=== PATIENT | female | born 1970 ===

== ENCOUNTER 2017-04-25 04:31 | Emergency (ER) | payer SELFPAY ==
[2017-04-25 05:07] VITALS: BP 201/128
[2017-04-25] MEDS ORDERED: ASPIRIN PO ONE (05:07)
[2017-04-25] MEDS ORDERED: CATAPRES PO ONE (05:08)
[2017-04-25] MEDS ORDERED: CATAPRES ONE (05:16)
[2017-04-25] MEDS ORDERED: ASPIRIN ONE (05:17)
[2017-04-25 05:45] LABS: Hematocrit 44.3 % (30.3-42.9); Hemoglobin 14.8 gm/dl (10.1-14.3); Mean Corpuscular HGB Conc 33 % (30-34); Mean Corpuscular Hemoglobin 32 pg (28-32); Mean Corpuscular Volume 95 fl (79-97); Platelet Count 242 K/mm3 (140-440); Red Blood Count 4.65 M/mm3 (3.65-5.03); Red Cell Distribution Width 13.1 % (13.2-15.2)
[2017-04-25 06:05] LABS: BUN/Creatinine Ratio 16; Blood Urea Nitrogen 13 mg/dL (7-17); Calcium 9.2 mg/dL (8.4-10.2); Hemolysis Index 12
[2017-04-25 06:32] LABS: Platelet Estimate Consistent w Auto; Total Cells Counted 100
== END 2017-04-25 15:00 | disposition left against medical advice (07) ==
LOC: ED 04:31
DX: Z53.21 Procedure and treatment not carried out due to patient leaving prior to being seen by health care provider (principal)
CPT/HCPCS: 36415; 80048; 84484; 85007; 85025; 93005; 93010

== ENCOUNTER 2017-09-16 07:57 | Inpatient (IN) | payer OTHER ==
[2017-09-16] MEDS ORDERED: NACL 0.9% 1000 ML 1,000 ML IV ONE ×2 (08:17→12:44)
[2017-09-16 09:07] LABS: Hematocrit 43.6 % (30.3-42.9); Hemoglobin 14.2 gm/dl (10.1-14.3); Mean Corpuscular HGB Conc 33 % (30-34); Mean Corpuscular Hemoglobin 31 pg (28-32); Mean Corpuscular Volume 94 fl (79-97); Platelet Count 259 K/mm3 (140-440); Red Blood Count 4.63 M/mm3 (3.65-5.03); Red Cell Distribution Width 13.2 % (13.2-15.2)
[2017-09-16 09:09] LABS: Creatine Kinase MB 1.4 ng/mL (0.0-4.0)
[2017-09-16 09:12] LABS: Alanine Aminotransferase 55 units/L (7-56); BUN/Creatinine Ratio 16; Blood Urea Nitrogen 13 mg/dL (7-17); Calcium 9.8 mg/dL (8.4-10.2); Hemolysis Index 15; Lipase 6 units/L (13-60)
[2017-09-16 09:12] LABS: Lipase 7 units/L (13-60)
[2017-09-16] MEDS ORDERED: CATAPRES PO ONE ×2 (09:29→10:12)
--- NOTE | 2017-09-16 09:30 | Emergency Department Report ---
ED Abdominal Pain HPI - General Chief Complaint: GI Bleed Stated Complaint: ABDOMINAL PAIN Time Seen by Provider: 09/16/17 09:29 Source: patient Mode of arrival: Wheelchair Limitations: No Limitations - History of Present Illness Initial Comments: She is a 47-year-old female that presents emergency room with abdominal pain and chest pain that started at 2 AM this morning. patient states she has thrown up about 4-6 times of bright red blood. Patient states the pain is a 10 out of 10 in her abdomen at a 4 out of 10 in her chest. Patient states both pains are better with rest and worse with exertion . Abdominal pain is also worse with palpitation and vomiting. Patient denies fever chills. Patient denies shortness of breath. Patient denies history of GI bleed. MD Complaint: abdominal pain -: Sudden Location: epigastric Radiation: none Migration to: no migration Severity: severe Severity scale (0 -10): 10 Quality: stabbing Consistency: constant Improves With: rest Worsens With: vomiting, movement Associated Symptoms: nausea, vomiting, hematemesis. denies: diarrhea, fever, chills, constipation, dysuria, melena, hematuria, anorexia, syncope - Related Data LMP (females 10-50): other (status post hysterectomy) Home Medications Medication Instructions Recorded Confirmed Last Taken No Known Home Medications [No 04/25/17 04/25/17 Unknown Reported Home Medications] Allergies Allergy/AdvReac Type Severity Reaction Status Date / Time No Known Allergies Allergy Verified 09/16/17 09:30 ED Review of Systems ROS: Stated complaint: ABDOMINAL PAIN Other details as noted in HPI Comment: All other systems reviewed and negative Constitutional: denies: chills, fever Eyes: denies: eye pain, eye discharge, vision change ENT: denies: ear pain, throat pain Respiratory: denies: cough, shortness of breath, wheezing Cardiovascular: chest pain. denies: palpitations Endocrine: no symptoms reported Gastrointestinal: as per HPI, abdominal pain, nausea, vomiting, hematemesis. denies: diarrhea, constipation, melena Genitourinary: denies: urgency, dysuria, discharge Musculoskeletal: denies: back pain, joint swelling, arthralgia Skin: denies: rash, lesions Neurological: denies: headache, weakness, paresthesias Psychiatric: denies: anxiety, depression Hematological/Lymphatic: denies: easy bleeding, easy bruising ED Past Medical Hx - Past Medical History Previous Medical History?: Yes Hx Hypertension: Yes Hx Heart Attack/AMI: ([facility]) Additional medical history: THYROID - Surgical History Past Surgical History?: Yes Additional Surgical History: Hysterectomy, - Family History Family history: hypertension - Social History Smoking Status: Current Some Day Smoker Substance Use Type: None - Medications Home Medications: Home Medications Medication Instructions Recorded Confirmed Last Taken Type No Known Home Medications [No 04/25/17 04/25/17 Unknown History Reported Home Medications] ED Physical Exam - General Limitations: No Limitations General appearance: alert, in distress (patient Tachypneic) - Head Head exam: Present: atraumatic, normocephalic - Eye Eye exam: Present: normal appearance - ENT ENT exam: Present: mucous membranes dry - Neck Neck exam: Present: normal inspection - Respiratory Respiratory exam: Present: normal lung sounds bilaterally, respiratory distress (patient tachypneic) - Cardiovascular Cardiovascular Exam: Present: regular rate, normal rhythm. Absent: systolic murmur, diastolic murmur, rubs, gallop - GI/Abdominal GI/Abdominal exam: Present: soft, tenderness (left upper quadrant and epigastric tenderness to palpation), normal bowel sounds - Extremities Exam Extremities exam: Present: normal inspection - Back Exam Back exam: Present: normal inspection - Neurological Exam Neurological exam: Present: alert, oriented X3 - Psychiatric Psychiatric exam: Present: normal affect, normal mood - Skin Skin exam: Present: warm, dry, intact, normal color. Absent: rash ED Course Vital Signs 09/16/17 09/16/17 09/16/17 08:13 09:37 09:54 Temperature 99.4 F 99.6 F Pulse Rate 122 H 115 H 115 H Respiratory 24 36 H Rate Blood Pressure 219/115 216/119 Blood Pressure 216/119 [Left] O2 Sat by Pulse 90 100 Oximetry 09/16/17 09/16/17 09/16/17 10:15 11:08 12:51 Temperature Pulse Rate 104 H 109 H Respiratory Rate Blood Pressure 210/128 202/125 189/100 Blood Pressure [Left] O2 Sat by Pulse Oximetry 09/16/17 09/16/17 14:15 14:30 Temperature Pulse Rate 109 H 108 H Respiratory 19 26 H Rate Blood Pressure Blood Pressure 186/87 173/90 [Left] O2 Sat by Pulse 97 95 Oximetry - Reevaluation(s) Reevaluation #1: Patient extremely hypertensive and we'll give patient another hypertensive medication. She states her pain has improved 09/16/17 11:18 Reevaluation #2: Dr. Vidal consult for admission. Hospitalist to admit patient. Discussed plan of care with patient and family. Patient and family agree to admission. 09/16/17 12:55 ED Medical Decision Making - Lab Data Result diagrams: 09/16/17 15:22 09/16/17 08:28 - EKG Data -: EKG Interpreted by Me EKG shows normal: sinus rhythm, axis, intervals, QRS complexes, ST-T waves Rate: tachycardia - EKG Data Interpretation: [facility] - Radiology Data Radiology results: report reviewed CT scan negative for PE however positive for possible bilateral pneumonia. Abdomen negative for acute findings - Medical Decision Making Patient is a 47-year-old female presents to emergency with chest pain and abdominal pain and hematemesis. Patient found to have bilateral pneumonia along with elevated white count and elevated d-dimer. Patient will be admitted to the hospitalist service for further evaluation and treatment. - Differential Diagnosis cp. abd pain. pna. pe. gastroenteritis. Critical Care Time: Yes Critical care attestation.: If time is entered above; I have spent that time in minutes in the direct care of this critically ill patient, excluding procedure time. Critical Care Time: 40 minutes spent for critical care time ED Disposition Clinical Impression: Hypertensive emergency, Elevated d-dimer, Tachycardia, Tachypnea Chest pain Qualifiers: Chest pain type: unspecified Qualified Code(s): R07.9 - Chest pain, unspecified Abdominal pain Qualifiers: Abdominal location: upper abdomen, unspecified Qualified Code(s): R10.10 - Upper abdominal pain, unspecified Hematemesis Qualifiers: Nausea presence: with nausea Qualified Code(s): K92.0 - Hematemesis Nausea & vomiting Qualifiers: Vomiting type: hematemesis Qualified Code(s): K92.0 - Hematemesis Pneumonia Qualifiers: Pneumonia type: due to unspecified organism Laterality: bilateral Lung location : unspecified part of lung Qualified Code(s): J18.9 - Pneumonia, unspecified organism Elevated white blood cell count Qualifiers: Leukocytosis type: unspecified Qualified Code(s): D72.829 - Elevated white blood cell count, unspecified Disposition: DC-09 OP ADMIT IP TO THIS HOSP Is pt being admited?: Yes Does the pt Need Aspirin: No Condition: Critical Time of Disposition: 12:44
[2017-09-16] MEDS ORDERED: LOPRESSOR IV ONE (09:37)
[2017-09-16 10:06] LABS: Bilirubin,Urine NEG (Negative); Blood,Urine MOD (Negative); Color,Urine Yellow (Yellow); Mucus,Urine FEW /HPF; Urobilinogen,Urine < 2.0 mg/dL (<2.0)
[2017-09-16] MEDS ORDERED: CATAPRES ONE (10:07)
[2017-09-16] MEDS ORDERED: MORPHINE ONE (10:08)
[2017-09-16 10:10] LABS: INR 0.96 (0.87-1.13)
[2017-09-16 10:11] LABS: Partial Thromboplastin Time 28.7 Sec. (24.2-36.6)
[2017-09-16] MEDS ORDERED: MORPHINE IV ONE (10:12)
[2017-09-16 10:50] LABS: Band Neutrophils # (Manual) 0.8 K/mm3; Basophils % (Manual) 0 % (0.0-1.8); Eosinophils % (Manual) 0 % (0.0-4.3); Total Cells Counted 100
[2017-09-16 10:51] LABS: Platelet Estimate Consistent w Auto; RBC Morphology Normal
[2017-09-16] MEDS ORDERED: APRESOLINE ONE (11:05)
[2017-09-16] MEDS ORDERED: APRESOLINE IV ONE ×2 (11:08→12:08)
--- NOTE | 2017-09-16 11:54 | Cat Scan Report ---
CTA CHEST: HISTORY: Chest pain, elevated d-dimer. COMPARISON: none. TECHNIQUE: Helical CT in 1.25mm intervals following IV contrast. Pulmonary embolus protocol. Sagittal and coronal reformatted images. Rotational MIP images. FINDINGS: Contrast bolus is satisfactory. No pulmonary embolus is identified. Thyroid gland: Normal. Tracheobronchial tree: Normal. Esophagus: Normal. Heart: Mild to moderate cardiomegaly. Pericardium: Normal. Mediastinum: Normal. Lung Guevara: Patchy infiltrate is identified in the left lower lobe, lingula and middle lobe. There is ammonia or congestion. I favor pneumonia. Pleural Spaces: Normal. Musculoskeletal: Intact. Mild thoracic spondylosis. IMPRESSION: No evidence for pulmonary embolus. Cardiomegaly and bilateral infiltrates. Correlate for pneumonia.
--- NOTE | 2017-09-16 11:56 | Cat Scan Report ---
CT ABDOMEN PELVIS WITH AND WITHOUT CONTRAST: HISTORY: abdominal pain. COMPARISON: none. TECHNIQUE: Helical CT in 1.25mm intervals before and after IV contrast. Sagittal and coronal reconstructions. FINDINGS: Lung bases: Cardiomegaly and infiltrates in the lower lung zones are noted. Liver: Normal. Biliary system: Normal. Pancreas: Normal. Spleen: Normal. Kidneys/ureters/bladder: Normal. Adrenal glands: Normal. Aorta: Normal. Intestines: Unremarkable given no oral contrast was administered. Appendix: Normal. Pelvic viscera: Hysterectomy. Small bilateral ovarian cysts are identified measuring up to 1.5 cm. Ascites: None. Adenopathy: None. Musculoskeletal: Intact. IMPRESSION: Cardiomegaly and bilateral lower lung infiltrates. No acute inflammatory process is identified in the abdomen. Small bilateral ovarian cysts. Hysterectomy.
[2017-09-16] MEDS ORDERED: ZOSYN/NS 3.375GM/50ML 3.375 GM/50 ML BAG IV SCH (13:00)
--- NOTE | 2017-09-16 14:30 | History and Physical Report ---
History of Present Illness Chief complaint: My stomach hurts, I feel sick History of present illness: 47 YO Female with Obesity, HTN, Medication Noncompliance, Hypothyroidism, presents to ED for evaluation. Pt states that she has experienced Abdominal Pain , and chest discomfort for the past 1 day with persistent symptoms over the same time frame. Pt states that her abdominal pain is 10/10, epigastric, constant, improves with rest, worsened with movement, associated with nausea, vomiting, and vomiting up blood. Pt states that she has experienced 6 episodes of vomiting blood in the past 24 hours. Pt seen and evaluated in ED and found to have GI Bleed, Bilateral Pneumonia, Sepsis, and Accelerated hypertension. Pt admitted to medical floor. GI team consulted, Pt hgb stable,without hematemeis in ED. Past History Past Medical History: hypertension, hypothyroidism Past Surgical History: , hysterectomy Social history: , lives with family, smoking Family history: hypertension Medications and Allergies Allergies Allergy/AdvReac Type Severity Reaction Status Date / Time No Known Allergies Allergy Verified 09/16/17 09:30 Home Medications Medication Instructions Recorded Confirmed Last Taken Type No Known Home Medications [No 04/25/17 04/25/17 Unknown History Reported Home Medications] Active Meds: Active Medications Piperacillin Sod/Tazobactam Sod (Zosyn/Ns 3.375gm/50ml) 3.375 gm in 50 mls @ 100 mls/hr IV Q6H JENNYFER Last Admin: 09/16/17 14:22 Dose: 100 mls/hr Review of Systems Constitutional: no weight loss, no weight gain, no fever, no chills Ears, nose, mouth and throat: no ear pain, no ear discharge, no tinnitis, no decreased hearing, no nose pain Breasts: no change in shape, no swelling, no mass Cardiovascular: no chest pain, no orthopnea, no palpitations, no rapid/ irregular heart beat, no edema Respiratory: no cough, no cough with sputum, no excessive sputum, no hemoptysis Gastrointestinal: abdominal pain, nausea, vomiting, hematemesis, no BRBPR, no loss of appetite Genitourinary Female: no pelvic pain, no flank pain, no menorrhagia, no dysuria , no urinary frequency, no urgency Rectal: no pain, no incontinence, no bleeding Musculoskeletal: no neck stiffness, no neck pain, no shooting arm pain, no arm numbness/tingling, no low back pain, no shooting leg pain Integumentary: no rash, no pruritis, no redness, no sores, no wounds Neurological: no head injury, no transient paralysis, no paralysis, no weakness , no parathesias, no numbness, no tingling Psychiatric: no anxiety, no memory loss, no change in sleep habits, no sleep disturbances, no insomnia, no hypersomnia, no change in appetite Endocrine: no cold intolerance, no heat intolerance, no polyphagia, no excessive thirst, no polydipsia, no polyuria, no nocturia Hematologic/Lymphatic: no easy bruising, no easy bleeding, no lymphadenopathy, no lymphedema Allergic/Immunologic: no urticaria, no allergic rhinitis, no wheezing, no persistent infections, no anaphylaxis Exam - Constitutional Vitals: Temp Pulse Resp BP Pulse Ox 99.6 F 109 H 36 H 189/100 100 09/16/17 09:37 09/16/17 12:51 09/16/17 09:37 09/16/17 12:51 09/16/17 09:37 General appearance: Present: mild distress, obese - EENT Eyes: Present: PERRL ENT: hearing intact, clear oral mucosa - Neck Neck: Present: supple, normal ROM - Respiratory Respiratory effort: normal Respiratory: bilateral: diminished, rhonchi - Cardiovascular Heart Sounds: Present: S1 & S2. Absent: rub, click - Extremities Extremities: pulses symmetrical, No edema Peripheral Pulses: abnormal (capillary refill greater than 3.6 seconds) - Integumentary Integumentary: Present: clear, warm, dry - Musculoskeletal Musculoskeletal: generalized weakness - Psychiatric Psychiatric: appropriate mood/affect, intact judgment & insight - Neurologic Neurologic: CNII-XII intact, moves all extremities Results - Labs CBC & Chem 7: 09/16/17 15:22 09/16/17 08:28 Labs: Abnormal lab results 09/16/17 09/16/17 09/16/17 Range/Units 08:28 08:28 08:28 WBC 20.2 H (4.5-11.0) K/mm3 Hct 43.6 H (30.3-42.9) % Seg Neuts % (Manual) 91.0 H (40.0-70.0) % Lymphocytes % (Manual) 2.0 L (13.4-35.0) % Seg Neutrophils # Man 18.4 H (1.8-7.7) K/mm3 Lymphocytes # (Manual) 0.4 L (1.2-5.4) K/mm3 D-Dimer 1074.75 H (0-234) ng/mlDDU Sodium 134 L (137-145) mmol/L Chloride 96.9 L (98-107) mmol/L Glucose 120 H (65-100) mg/dL Total Bilirubin 1.40 H (0.1-1.2) mg/dL Total Protein 8.3 H (6.3-8.2) g/dL Lipase 6 L (13-60) units/L 09/16/ Range/Units 08:33 WBC (4.5-11.0) K/mm3 Hct (30.3-42.9) % Seg Neuts % (Manual) (40.0-70.0) % Lymphocytes % (Manual) (13.4-35.0) % Seg Neutrophils # Man (1.8-7.7) K/mm3 Lymphocytes # (Manual) (1.2-5.4) K/mm3 D-Dimer (0-234) ng/mlDDU Sodium (137-145) mmol/L Chloride (98-107) mmol/L Glucose (65-100) mg/dL Total Bilirubin (0.1-1.2) mg/dL Total Protein (6.3-8.2) g/dL Lipase 7 L (13-60) units/L Assessment and Plan - Patient Problems (1) Sepsis Current Visit: Yes Status: Acute Qualifiers: Sepsis type: sepsis due to unspecified organism Qualified Code(s): A41.9 - Sepsis, unspecified organism Plan to address problem: IV antibiotics, IVF resuscitation, monitor uop q shift, daily weight, Strict I/O , monitor fluid balance, serial lactic acid level, Chest X ray, urinalysis, blood cultures (2) GI bleed Current Visit: Yes Status: Acute Qualifiers: GI bleed type/associated pathology: gastrointestinal hemorrhage with hematemesis Qualified Code(s): K92.0 - Hematemesis Plan to address problem: No active bleeding, HGB stable, GI consulted in ED, PPI therapy (3) Nicotine dependence Current Visit: Yes Status: Acute Qualifiers: Substance use status: in withdrawal Plan to address problem: smoking cessation counseling, supportive care. (4) Accelerated hypertension Current Visit: Yes Status: Acute Plan to address problem: Monitor bp q shift, resume prehospital therapy (5) Pneumonia Current Visit: Yes Status: Acute Qualifiers: Pneumonia type: due to unspecified organism Laterality: bilateral Lung location: unspecified part of lung Qualified Code(s): J18.9 - Pneumonia, unspecified organism Plan to address problem: IV antibiotics, Chest X ray, CBC, CMP, blood cultures, supplemental oxygen, nebulizer therapy (6) DVT prophylaxis Current Visit: Yes Status: Acute Plan to address problem: SCD to BLE while in bed
[2017-09-16] MEDS ORDERED: LOPRESSOR PO ONE (14:31)
[2017-09-16 15:45] LABS: Hematocrit 39.4 % (30.3-42.9); Hemoglobin 13.4 gm/dl (10.1-14.3); Mean Corpuscular HGB Conc 34 % (30-34); Mean Corpuscular Hemoglobin 31 pg (28-32); Mean Corpuscular Volume 92 fl (79-97); Platelet Count 248 K/mm3 (140-440); Red Blood Count 4.28 M/mm3 (3.65-5.03)
[2017-09-16] MEDS ORDERED: NACL 0.9% 1000 ML IV ONE (16:06)
[2017-09-16] MEDS ORDERED: SODIUM CHLORIDE FLUSH SYRINGE 10 ML IV PRN (16:06)
[2017-09-16 16:15] LABS: Free T4 (Free Thyroxine) 2.03 ng/dL (0.76-1.46)
[2017-09-16 16:17] LABS: Amphetamine Screen,Urine PRESUMPTIVE NEGATIVE; Benzodiazepines Screen,Urine PRESUMPTIVE NEGATIVE; Cannabinoid Screen,Urine PRESUMPTIVE NEGATIVE; Cocaine Screen,Urine PRESUMPTIVE NEGATIVE; Methadone Screen,Urine PRESUMPTIVE NEGATIVE; Opiate Screen,Urine PRESUMPTIVE NEGATIVE
[2017-09-16 16:40] LABS: Band Neutrophils # (Manual) 3.3 K/mm3; Basophils % (Manual) 0 % (0.0-1.8); Eosinophils % (Manual) 0 % (0.0-4.3); Monocytes % (Manual) 5.5 % (0.0-7.3); Total Cells Counted 200
[2017-09-16 16:41] LABS: Ovalocytes Few
[2017-09-16] MEDS ORDERED: VANCOMYCIN 1,750 MG in NACL 0.9% 500 ML 500 ML IV ONE (17:00)
[2017-09-16] MEDS: PROTONIX IV SCH (21:34)
[2017-09-16] MEDS: ZOFRAN IV PRN (21:34)
[2017-09-16] MEDS: SODIUM CHLORIDE FLUSH SYRINGE 10 ML IV SCH (21:34)
[2017-09-16] MEDS: PEPCID IV SCH (21:34)
[2017-09-16] MEDS: TYLENOL PO PRN (21:45)
[2017-09-16] MEDS: ZOSYN/NS 4.5GM/100ML 4.5 GM/100 ML VIAL IV SCH (23:19)
[2017-09-17] MEDS: ZOSYN/NS 4.5GM/100ML 4.5 GM/100 ML VIAL IV SCH ×3 (05:44→22:59)
[2017-09-17] MEDS: PROTONIX IV SCH ×2 (10:30→22:25)
[2017-09-17] MEDS: PEPCID IV SCH ×2 (10:30→22:35)
[2017-09-17] MEDS: ZOFRAN IV PRN ×2 (10:30→22:27)
[2017-09-17 10:55] LABS: Basophils # (Auto) 0.1 K/mm3 (0.0-0.1); Basophils % (Auto) 0.4 % (0.0-1.8); Eosinophils % (Auto) 0.3 % (0.0-4.3); Hematocrit 41.9 % (30.3-42.9); Hemoglobin 14.2 gm/dl (10.1-14.3); Lymphocytes # (Auto) 2.1 K/mm3 (1.2-5.4); Lymphocytes % (Auto) 12.6 % (13.4-35.0); Mean Corpuscular HGB Conc 34 % (30-34); Mean Corpuscular Hemoglobin 32 pg (28-32); Mean Corpuscular Volume 93 fl (79-97); Monocytes # (Auto) 1.6 K/mm3 (0.0-0.8); Monocytes % (Auto) 9.5 % (0.0-7.3); Platelet Count 236 K/mm3 (140-440); Red Cell Distribution Width 13.6 % (13.2-15.2)
[2017-09-17] MEDS ORDERED: PNEUMOVAX 23 IM ONE (12:00)
--- NOTE | 2017-09-17 12:45 | Gastroenterology Consultation ---
History of Present Illness - Reason for Consult Consult date: 09/17/17 hematemesis Requesting physician: KYARA JESUS - History of Present Illness The patient is a 47 year old female for whom consultation was requested for hematemesis. She felt well until 3 day ago when she developed nausea, vomiting and diarrhea. She then began vomiting BRB yesterday. Stools were watery and brown. Today she feels much better and is hungry. No prior history of PUD or bleeding. She is a smoker. Denies significant ETOH use. H&H was normal in ED. Past History Past Medical History: hypertension, hypothyroidism Past Surgical History: , hysterectomy Social history: , lives with family, smoking Family history: hypertension Medications and Allergies Allergies Allergy/AdvReac Type Severity Reaction Status Date / Time No Known Allergies Allergy Verified 09/16/17 09:30 Home Medications Medication Instructions Recorded Confirmed Last Taken Type No Known Home Medications [No 04/25/17 04/25/17 Unknown History Reported Home Medications] Active Meds: Active Medications Acetaminophen (Tylenol) 650 mg PO Q4H PRN PRN Reason: Pain MILD(1-3)/Fever >100.5/ROA Last Admin: 09/16/17 21:45 Dose: 650 mg Famotidine (Pepcid) 20 mg IV BID [facility] Last Admin: 09/17/17 10:30 Dose: 20 mg Hydralazine HCl (Apresoline) 10 mg IV Q4H PRN PRN Reason: Hypertension Piperacillin Sod/Tazobactam Sod (Zosyn/Ns 4.5gm/100ml) 4.5 gm in 100 mls @ 200 mls/hr IV Q8HR [facility]; Protocol Last Admin: 09/17/17 05:44 Dose: 200 mls/hr Nifedipine (Procardia Xl) 90 mg PO QDAY [facility] Ondansetron HCl (Zofran) 4 mg IV Q8H PRN PRN Reason: Nausea And Vomiting Last Admin: 09/17/17 10:30 Dose: 4 mg Pantoprazole Sodium (Protonix) 40 mg IV BID [facility] Last Admin: 09/17/17 10:30 Dose: 40 mg Sodium Chloride (Sodium Chloride Flush Syringe 10 Ml) 10 ml IV BID [facility] Last Admin: 09/16/17 21:34 Dose: 10 ml Sodium Chloride (Sodium Chloride Flush Syringe 10 Ml) 10 ml IV PRN PRN PRN Reason: LINE FLUSH Valsartan (Diovan) 160 mg PO DAILY [facility]ENNYFER Review of Systems - Review of Systems Constitutional: no weight loss Eyes: no change in vision Ears, Nose, Throat: no decreased hearing, no epistaxis Gastrointestinal: abdominal pain, nausea, vomiting, hematemesis Rectal: no pain, no bleeding Female Genitourinary: deferred Musculoskeletal: no gait dysfunction, no joint pain Integumentary: no deferred, no rash, no pruritis Neurological: no head injury, no paralysis Psychiatric: no anxiety, no memory loss Endocrine: no cold intolerance Hematologic/Lymphatic: no easy bruising, no easy bleeding Allergic/Immunologic: no wheezing Exam - Constitutional Vital Signs: Temp Pulse Resp BP Pulse Ox 99.2 F 101 H 20 181/100 92 09/17/17 08:04 09/17/17 08:04 09/17/17 08:04 09/17/17 08:04 09/17/17 08:04 General appearance: no acute distress, well-nourished - EENT Eyes: PERRL ENT: hearing intact, clear oral mucosa, dentition normal - Neck Neck: supple, normal ROM, no masses or JVD - Respiratory Respiratory effort: normal Respiratory: bilateral: CTA - Breasts Breasts: deferred - Cardiovascular Rhythm: regular Heart Sounds: Present: S1 & S2. Absent: gallop, rub Extremities: pulses intact, No edema, normal color, Full ROM - Gastrointestinal General gastrointestinal: Present: soft, non-tender, non-distended, normal bowel sounds. Absent: hepatomegaly, splenomegaly, mass Rectal Exam: deferred - Integumentary Integumentary: Present: clear, warm, dry - Neurologic Neurological: alert and oriented x3 - Labs CBC & Chem 7: 09/17/17 10:22 09/16/17 08:28 Lab Results: Laboratory Results - last 24 hr 09/16/17 09/16/17 09/16/17 15:22 15:22 16:02 WBC 25.7 H RBC 4.28 Hgb 13.4 Hct 39.4 MCV 92 MCH 31 MCHC 34 RDW 13.0 L Plt Count 248 Lymph % (Auto) Wells % (Auto) Eos % (Auto) Baso % (Auto) Lymph # Wells # Eos # Baso # Add Manual Diff Complete Total Counted 200 Seg Neutrophils % Seg Neuts % (Manual) 74.5 H Band Neutrophils % 13.0 Lymphocytes % (Manual) 7.0 L Reactive Lymphs % (Man) 0 Monocytes % (Manual) 5.5 Eosinophils % (Manual) 0 Basophils % (Manual) 0 Metamyelocytes % 0 Myelocytes % 0 Promyelocytes % 0 Blast Cells % 0 Nucleated RBC % Not Reportable Seg Neutrophils # Seg Neutrophils # Man 19.1 H Band Neutrophils # 3.3 Lymphocytes # (Manual) 1.8 Abs React Lymphs (Man) 0.0 Monocytes # (Manual) 1.4 H Eosinophils # (Manual) 0.0 Basophils # (Manual) 0.0 Metamyelocytes # 0.0 Myelocytes # 0.0 Promyelocytes # 0.0 Blast Cells # 0.0 WBC Morphology Not Reportable Hypersegmented Neuts Not Reportable Hyposegmented Neuts Not Reportable Hypogranular Neuts Not Reportable Smudge Cells Not Reportable Toxic Granulation Not Reportable Toxic Vacuolation Not Reportable Dohle Bodies Not Reportable Pelger-Huet Anomaly Not Reportable Arlen Rods Not Reportable Platelet Estimate Appears normal Clumped Platelets Not Reportable Plt Clumps, EDTA Not Reportable Large Platelets Not Reportable Giant Platelets Not Reportable Platelet Satelliting Not Reportable Plt Morphology Comment Not Reportable RBC Morphology Not Reportable Dimorphic RBCs Not Reportable Polychromasia Not Reportable Hypochromasia Not Reportable Poikilocytosis Not Reportable Anisocytosis Not Reportable Microcytosis Not Reportable Macrocytosis Not Reportable Spherocytes Not Reportable Pappenheimer Bodies Not Reportable Sickle Cells Not Reportable Target Cells Not Reportable Tear Drop Cells Not Reportable Ovalocytes Few Helmet Cells Not Reportable Santacruz-Tornillo Bodies Not Reportable Lennon Rings Not Reportable Denhoff Cells Not Reportable Bite Cells Not Reportable Crenated Cell Not Reportable Elliptocytes Not Reportable Acanthocytes (Spur) Not Reportable Rouleaux Not Reportable Hemoglobin C Crystals Not Reportable Schistocytes Not Reportable Malaria parasites Not Reportable Gaudencio Bodies Not Reportable Hem Pathologist Commnt No Lactic Acid NT-Pro-B Natriuret Pep TSH 0.009 L Free T4 2.03 H Urine Opiates Screen Presumptive negative Urine Methadone Screen Presumptive negative Ur Barbiturates Screen Presumptive negative Ur Phencyclidine Scrn Presumptive negative Ur Amphetamines Screen Presumptive negative U Benzodiazepines Scrn Presumptive negative Urine Cocaine Screen Presumptive negative U Marijuana (THC) Screen Presumptive negative Drugs of Abuse Note Disclamer 09/16/17 09/16/17 09/16/17 19:44 19:49 22:00 WBC RBC Hgb Hct MCV MCH MCHC RDW Plt Count Lymph % (Auto) Wells % (Auto) Eos % (Auto) Baso % (Auto) Lymph # Wells # Eos # Baso # Add Manual Diff Total Counted Seg Neutrophils % Seg Neuts % (Manual) Band Neutrophils % Lymphocytes % (Manual) Reactive Lymphs % (Man) Monocytes % (Manual) Eosinophils % (Manual) Basophils % (Manual) Metamyelocytes % Myelocytes % Promyelocytes % Blast Cells % Nucleated RBC % Seg Neutrophils # Seg Neutrophils # Man Band Neutrophils # Lymphocytes # (Manual) Abs React Lymphs (Man) Monocytes # (Manual) Eosinophils # (Manual) Basophils # (Manual) Metamyelocytes # Myelocytes # Promyelocytes # Blast Cells # WBC Morphology Hypersegmented Neuts Hyposegmented Neuts Hypogranular Neuts Smudge Cells Toxic Granulation Toxic Vacuolation Dohle Bodies Pelger-Huet Anomaly Arlen Rods Platelet Estimate Clumped Platelets Plt Clumps, EDTA Large Platelets Giant Platelets Platelet Satelliting Plt Morphology Comment RBC Morphology Dimorphic RBCs Polychromasia Hypochromasia Poikilocytosis Anisocytosis Microcytosis Macrocytosis Spherocytes Pappenheimer Bodies Sickle Cells Target Cells Tear Drop Cells Ovalocytes Helmet Cells Santacruz-Torn[place] Bodies Lennon Rings Denhoff Cells Bite Cells Crenated Cell Elliptocytes Acanthocytes (Spur) Rouleaux Hemoglobin C Crystals Schistocytes Malaria parasites Gaudencio Bodies Hem Pathologist Commnt Lactic Acid 1.10 1.20 NT-Pro-B Natriuret Pep 44216 H TSH Free T4 Urine Opiates Screen Urine Methadone Screen Ur Barbiturates Screen Ur Phencyclidine Scrn Ur Amphetamines Screen U Benzodiazepines Scrn Urine Cocaine Screen U Marijuana (THC) Screen Drugs of Abuse Note 09/17/17 10:22 WBC 16.9 H RBC 4.50 Hgb 14.2 Hct 41.9 MCV 93 MCH 32 MCHC 34 RDW 13.6 Plt Count 236 Lymph % (Auto) 12.6 L Wells % (Auto) 9.5 H Eos % (Auto) 0.3 Baso % (Auto) 0.4 Lymph # 2.1 Wells # 1.6 H Eos # 0.0 Baso # 0.1 Add Manual Diff Total Counted Seg Neutrophils % 77.2 H Seg Neuts % (Manual) Band Neutrophils % Lymphocytes % (Manual) Reactive Lymphs % (Man) Monocytes % (Manual) Eosinophils % (Manual) Basophils % (Manual) Metamyelocytes % Myelocytes % Promyelocytes % Blast Cells % Nucleated RBC % Seg Neutrophils # 13.0 H Seg Neutrophils # Man Band Neutrophils # Lymphocytes # (Manual) Abs React Lymphs (Man) Monocytes # (Manual) Eosinophils # (Manual) Basophils # (Manual) Metamyelocytes # Myelocytes # Promyelocytes # Blast Cells # WBC Morphology Hypersegmented Neuts Hyposegmented Neuts Hypogranular Neuts Smudge Cells Toxic Granulation Toxic Vacuolation Dohle Bodies Pelger-Huet Anomaly Arlen Rods Platelet Estimate Clumped Platelets Plt Clumps, EDTA Large Platelets Giant Platelets Platelet Satelliting Plt Morphology Comment RBC Morphology Dimorphic RBCs Polychromasia Hypochromasia Poikilocytosis Anisocytosis Microcytosis Macrocytosis Spherocytes Pappenheimer Bodies Sickle Cells Target Cells Tear Drop Cells Ovalocytes Helmet Cells Santacruz-Tornillo Bodies Lennon Rings Saw Cells Bite Cells Crenated Cell Elliptocytes Acanthocytes (Spur) Rouleaux Hemoglobin C Crystals Schistocytes Malaria parasites Gaudencio Bodies Hem Pathologist Commnt Lactic Acid NT-Pro-B Natriuret Pep TSH Free T4 Urine Opiates Screen Urine Methadone Screen Ur Barbiturates Screen Ur Phencyclidine Scrn Ur Amphetamines Screen U Benzodiazepines Scrn Urine Cocaine Screen U Marijuana (THC) Screen Drugs of Abuse Note Assessment and Plan - Patient Problems (1) Hematemesis Current Visit: Yes Status: Acute Qualifiers: Nausea presence: with nausea Qualified Code(s): K92.0 - Hematemesis Plan to address problem: Likely has a Apurva Maldonado tear. Bleeding has been minor and she has had no recurrence. Will plan EGD in AM. Advance to full liquid diet.
[2017-09-17] MEDS: DIOVAN PO SCH (13:13)
[2017-09-17] MEDS: PROCARDIA XL PO SCH (13:14)
[2017-09-17] MEDS: SODIUM CHLORIDE FLUSH SYRINGE 10 ML IV SCH ×2 (13:14→22:27)
--- NOTE | 2017-09-17 15:30 | Progress Note ---
<MAGUI GALDAMEZ - Last Filed: 09/17/17 15:22> Assessment and Plan Assessment and plan: Patient is a 47-year-old -[place] woman who presented to the emergency department with complaints of abdominal pain with associated nausea vomiting, and hematemesis. Patient also complained of chest discomfort which had been occurring for the prior 24 hours to admission. Pneumonia Continue IV antibiotics, supplemental oxygen, nebulizer therapy, follow blood cultures, Sepsis Likely secondary to above, white count is improving today, continue IV antibiotics, IVF resuscitation, follow blood cultures GI bleed No active bleeding, HGB stable, GI following, suggests Apurva Maldonado tear, EGD in am Nicotine dependence smoking cessation counseling, supportive care. Accelerated hypertension Patient initiated on nifedipine and valsartan, we'll continue to monitor monitor blood pressure Hyperthyroidism Patient initiated on methimazole, f/u with [employer] rolls as OP DVT prophylaxis: SCD to BLE while in bed History Interval history: patient seen and examined. She come tenuous complain of epigastric abdominal pain currently 5 out of 10. She has no other new complaints at this time. Labs , chart notes, nursing notes reviewed. Hospitalist Physical - Physical exam Narrative exam: General appearance: Present: no acute distress, well-nourished - EENT Eyes: Present: PERRL, EOM intact ENT: hearing intact, clear oral mucosa - Neck Present: supple, normal ROM - Respiratory Respiratory effort: normal Respiratory: bilateral: CTA - Cardiovascular Rhythm: regular Heart Sounds: Present: S1 & S2. Absent: Rub, click - Extremities Extremities: no ischemia, No edema - Abdominal General gastrointestinal: soft, non-tender, non-distended, normal bowel sounds - Integumentary Integumentary: Present: clear, warm, dry - Psychiatric Psychiatric: appropriate mood/affect, intact judgment & insight, cooperative - Neurologic Neurologic: CNII-XII intact, moves all extremities - Constitutional Vitals: Temp Pulse Resp BP Pulse Ox 99.2 F 104 H 20 191/101 92 09/17/17 08:04 09/17/17 13:13 09/17/17 08:04 09/17/17 13:13 09/17/17 08:04 General appearance: Present: obese Results - Labs CBC & Chem 7: 09/17/17 10:22 09/16/17 08:28 Labs: Laboratory Last Values WBC 16.9 K/mm3 (4.5-11.0) H 09/17/17 10:22 RBC 4.50 M/mm3 (3.65-5.03) 09/17/17 10:22 Hgb 14.2 gm/dl (10.1-14.3) 09/17/17 10:22 Hct 41.9 % (30.3-42.9) 09/17/17 10:22 MCV 93 fl (79-97) 09/17/17 10:22 MCH 32 pg (28-32) 09/17/17 10:22 MCHC 34 % (30-34) 09/17/17 10:22 RDW 13.6 % (13.2-15.2) 09/17/17 10:22 Plt Count 236 K/mm3 (140-440) 09/17/17 10:22 Lymph % (Auto) 12.6 % (13.4-35.0) L 09/17/17 10:22 [place] % (Auto) 9.5 % (0.0-7.3) H 09/17/17 10:22 Eos % (Auto) 0.3 % (0.0-4.3) 09/17/17 10:22 Baso % (Auto) 0.4 % (0.0-1.8) 09/17/17 10:22 Lymph # 2.1 K/mm3 (1.2-5.4) 09/17/17 10:22 [place] # 1.6 K/mm3 (0.0-0.8) H 09/17/17 10:22 Eos # 0.0 K/mm3 (0.0-0.4) 09/17/17 10:22 Baso # 0.1 K/mm3 (0.0-0.1) 09/17/17 10:22 Add Manual Diff Complete 09/16/17 15:22 Total Counted 200 09/16/17 15:22 Seg Neutrophils % 77.2 % (40.0-70.0) H 09/17/17 10:22 Seg Neuts % (Manual) 74.5 % (40.0-70.0) H 09/16/17 15:22 Band Neutrophils % 13.0 % 09/16/17 15:22 Lymphocytes % (Manual) 7.0 % (13.4-35.0) L 09/16/17 15:22 Reactive Lymphs % (Man) 0 % 09/16/17 15:22 Monocytes % (Manual) 5.5 % (0.0-7.3) 09/16/17 15:22 Eosinophils % (Manual) 0 % (0.0-4.3) 09/16/17 15:22 Basophils % (Manual) 0 % (0.0-1.8) 09/16/17 15:22 Metamyelocytes % 0 % 09/16/17 15:22 Myelocytes % 0 % 09/16/17 15:22 Promyelocytes % 0 % 09/16/17 15:22 Blast Cells % 0 % 09/16/17 15:22 Nucleated RBC % Not Reportable 09/16/17 15:22 Seg Neutrophils # 13.0 K/mm3 (1.8-7.7) H 09/17/17 10:22 Seg Neutrophils # Man 19.1 K/mm3 (1.8-7.7) H 09/16/17 15:22 Band Neutrophils # 3.3 K/mm3 09/16/17 15:22 Lymphocytes # (Manual) 1.8 K/mm3 (1.2-5.4) 09/16/17 15:22 Abs React Lymphs (Man) 0.0 K/mm3 09/16/17 15:22 Monocytes # (Manual) 1.4 K/mm3 (0.0-0.8) H 09/16/17 15:22 Eosinophils # (Manual) 0.0 K/mm3 (0.0-0.4) 09/16/17 15:22 Basophils # (Manual) 0.0 K/mm3 (0.0-0.1) 09/16/17 15:22 Metamyelocytes # 0.0 K/mm3 09/16/17 15:22 Myelocytes # 0.0 K/mm3 09/16/17 15:22 Promyelocytes # 0.0 K/mm3 09/16/17 15:22 Blast Cells # 0.0 K/mm3 09/16/17 15:22 WBC Morphology Not Reportable 09/16/17 15:22 Hypersegmented Neuts Not Reportable 09/16/17 15:22 Hyposegmented Neuts Not Reportable 09/16/17 15:22 Hypogranular Neuts Not Reportable 09/16/17 15:22 Smudge Cells Not Reportable 09/16/17 15:22 Toxic Granulation Not Reportable 09/16/17 15:22 Toxic Vacuolation Not Reportable 09/16/17 15:22 Dohle Bodies Not Reportable 09/16/17 15:22 Pelger-Huet Anomaly Not Reportable 09/16/17 15:22 Arlen Rods Not Reportable 09/16/17 15:22 Platelet Estimate Appears normal 09/16/17 15:22 Clumped Platelets Not Reportable 09/16/17 15:22 Plt Clumps, EDTA Not Reportable 09/16/17 15:22 Large Platelets Not Reportable 09/16/17 15:22 Giant Platelets Not Reportable 09/16/17 15:22 Platelet Satelliting Not Reportable 09/16/17 15:22 Plt Morphology Comment Not Reportable 09/16/17 15:22 RBC Morphology Not Reportable 09/16/17 15:22 Dimorphic RBCs Not Reportable 09/16/17 15:22 Polychromasia Not Reportable 09/16/17 15:22 Hypochromasia Not Reportable 09/16/17 15:22 Poikilocytosis Not Reportable 09/16/17 15:22 Anisocytosis Not Reportable 09/16/17 15:22 Microcytosis Not Reportable 09/16/17 15:22 Macrocytosis Not Reportable 09/16/17 15:22 Spherocytes Not Reportable 09/16/17 15:22 Pappenheimer Bodies Not Reportable 09/16/17 15:22 Sickle Cells Not Reportable 09/16/17 15:22 Target Cells Not Reportable 09/16/17 15:22 Tear Drop Cells Not Reportable 09/16/17 15:22 Ovalocytes Few 09/16/17 15:22 Helmet Cells Not Reportable 09/16/17 15:22 [place] Bodies Not Reportable 09/16/17 15:22 [place] Rings Not Reportable 09/16/17 15:22 Saw Cells Not Reportable 09/16/17 15:22 Bite Cells Not Reportable 09/16/17 15:22 Crenated Cell Not Reportable 09/16/17 15:22 Elliptocytes Not Reportable 09/16/17 15:22 Acanthocytes (Spur) Not Reportable 09/16/17 15:22 Rouleaux Not Reportable 09/16/17 15:22 Hemoglobin C Crystals Not Reportable 09/16/17 15:22 Schistocytes Not Reportable 09/16/17 15:22 Malaria parasites Not Reportable 09/16/17 15:22 Gaudencio Bodies Not Reportable 09/16/17 15:22 Hem Pathologist Commnt No 09/16/17 15:22 PT 13.3 Sec. (12.2-14.9) 09/16/17 08:28 INR 0.96 (0.87-1.13) 09/16/17 08:28 APTT 28.7 Sec. (24.2-36.6) 09/16/17 08:28 D-Dimer 1074.75 ng/mlDDU (0-234) H 09/16/17 08:28 Sodium 134 mmol/L (137-145) L 09/16/17 08:28 Potassium 3.9 mmol/L (3.6-5.0) 09/16/17 08:28 Chloride 96.9 mmol/L (98-107) L 09/16/17 08:28 Carbon Dioxide 22 mmol/L (22-30) 09/16/17 08:28 Anion Gap 19 mmol/L 09/16/17 08:28 BUN 13 mg/dL (7-17) 09/16/17 08:28 Creatinine 0.8 mg/dL (0.7-1.2) 09/16/17 08:28 Estimated GFR > 60 ml/min 09/16/17 08:28 BUN/Creatinine Ratio 16 % 09/16/17 08:28 Glucose 120 mg/dL (65-100) H 09/16/17 08:28 Lactic Acid 1.20 mmol/L (0.7-2.0) 09/16/17 22:00 Calcium 9.8 mg/dL (8.4-10.2) 09/16/17 08:28 Total Bilirubin 1.40 mg/dL (0.1-1.2) H 09/16/17 08:28 AST 34 units/L (5-40) 09/16/17 08:28 ALT 55 units/L (7-56) 09/16/17 08:28 Alkaline Phosphatase 115 units/L (35-129) 09/16/17 08:28 Total Creatine Kinase 85 units/L (30-135) 09/16/17 08:33 CK-MB (CK-2) 1.4 ng/mL (0.0-4.0) 09/16/17 08:33 CK-MB (CK-2) Rel Index 1.6 (0-4) 09/16/17 08:33 Troponin T < 0.010 ng/mL (0.00-0.029) 09/16/17 08:33 NT-Pro-B Natriuret Pep 95051 pg/mL (0-450) H 09/16/17 19:49 Total Protein 8.3 g/dL (6.3-8.2) H 09/16/17 08:28 Albumin 4.0 g/dL (3.9-5) 09/16/17 08:28 Albumin/Globulin Ratio 0.9 % 09/16/17 08:28 Lipase 7 units/L (13-60) L 09/16/17 08:33 TSH 0.009 mlU/mL (0.270-4.200) L 09/16/17 15:22 Free T4 2.03 ng/dL (0.76-1.46) H 09/16/17 15:22 Urine Color Yellow (Yellow) 09/16/17 09:30 Urine Turbidity Clear (Clear) 09/16/17 09:30 Urine pH 5.0 (5.0-7.0) 09/16/17 09:30 Ur Specific [place] 1.014 (1.003-1.030) 09/16/17 09:30 Urine Protein 30 mg/dl mg/dL (Negative) 09/16/17 09:30 Urine Glucose (UA) Neg mg/dL (Negative) 09/16/17 09:30 Urine Ketones Tr mg/dL (Negative) 09/16/17 09:30 Urine Blood Mod (Negative) 09/16/17 09:30 Urine Nitrite Neg (Negative) 09/16/17 09:30 Urine Bilirubin Neg (Negative) 09/16/17 09:30 Urine Urobilinogen < 2.0 mg/dL (<2.0) 09/16/17 09:30 Ur Leukocyte Esterase Neg (Negative) 09/16/17 09:30 Urine WBC (Auto) 1.0 /HPF (0.0-6.0) 09/16/17 09:30 Urine RBC (Auto) 7.0 /HPF (0.0-6.0) 09/16/17 09:30 U Epithel Cells (Auto) 1.0 /HPF (0-13.0) 09/16/17 09:30 Urine Mucus Few /HPF 09/16/17 09:30 Urine Opiates Screen Presumptive negative 09/16/17 16:02 Urine Methadone Screen Presumptive negative 09/16/17 16:02 Ur Barbiturates Screen Presumptive negative 09/16/17 16:02 Ur Phencyclidine Scrn Presumptive negative 09/16/17 16:02 Ur Amphetamines Screen Presumptive negative 09/16/17 16:02 U Benzodiazepines Scrn Presumptive negative 09/16/17 16:02 Urine Cocaine Screen Presumptive negative 09/16/17 16:02 U Marijuana (THC) Screen Presumptive negative 09/16/17 16:02 Drugs of Abuse Note Disclamer 09/16/17 16:02 Blood Type B POSITIVE 09/16/17 08:28 Antibody Screen Negative 09/16/17 08:28 <GERALD BARKER M - Last Filed: 09/17/17 17:48> Assessment and Plan Assessment and plan: I saw and evaluated the patient. I agree with the findings and the plan of care as documented in the PA's note, with the following corrections and additions. Patient didn't have any active bleeding H&H is stable, GI was consulted and going to do EGD in the morning. We will follow blood culture. Hospitalist Physical - Constitutional Vitals: Temp Pulse Resp BP Pulse Ox 100.3 F H 102 H 20 166/88 91 09/17/17 15:38 09/17/17 15:38 09/17/17 15:38 09/17/17 15:38 09/17/17 15:38 Results - Labs CBC & Chem 7: 09/17/17 10:22 09/16/17 08:28 Labs: Laboratory Last Values WBC 16.9 K/mm3 (4.5-11.0) H 09/17/17 10:22 RBC 4.50 M/mm3 (3.65-5.03) 09/17/17 10:22 Hgb 14.2 gm/dl (10.1-14.3) 09/17/17 10:22 Hct 41.9 % (30.3-42.9) 09/17/17 10:22 MCV 93 fl (79-97) 09/17/17 10:22 MCH 32 pg (28-32) 09/17/17 10:22 MCHC 34 % (30-34) 09/17/17 10:22 RDW 13.6 % (13.2-15.2) 09/17/17 10:22 Plt Count 236 K/mm3 (140-440) 09/17/17 10:22 Lymph % (Auto) 12.6 % (13.4-35.0) L 09/17/17 10:22 [place] % (Auto) 9.5 % (0.0-7.3) H 09/17/17 10:22 Eos % (Auto) 0.3 % (0.0-4.3) 09/17/17 10:22 Baso % (Auto) 0.4 % (0.0-1.8) 09/17/17 10:22 Lymph # 2.1 K/mm3 (1.2-5.4) 09/17/17 10:22 [place] # 1.6 K/mm3 (0.0-0.8) H 09/17/17 10:22 Eos # 0.0 K/mm3 (0.0-0.4) 09/17/17 10:22 Baso # 0.1 K/mm3 (0.0-0.1) 09/17/17 10:22 Add Manual Diff Complete 09/16/17 15:22 Total Counted 200 09/16/17 15:22 Seg Neutrophils % 77.2 % (40.0-70.0) H 09/17/17 10:22 Seg Neuts % (Manual) 74.5 % (40.0-70.0) H 09/16/17 15:22 Band Neutrophils % 13.0 % 09/16/17 15:22 Lymphocytes % (Manual) 7.0 % (13.4-35.0) L 09/16/17 15:22 Reactive Lymphs % (Man) 0 % 09/16/17 15:22 Monocytes % (Manual) 5.5 % (0.0-7.3) 09/16/17 15:22 Eosinophils % (Manual) 0 % (0.0-4.3) 09/16/17 15:22 Basophils % (Manual) 0 % (0.0-1.8) 09/16/17 15:22 Metamyelocytes % 0 % 09/16/17 15:22 Myelocytes % 0 % 09/16/17 15:22 Promyelocytes % 0 % 09/16/17 15:22 Blast Cells % 0 % 09/16/17 15:22 Nucleated RBC % Not Reportable 09/16/17 15:22 Seg Neutrophils # 13.0 K/mm3 (1.8-7.7) H 09/17/17 10:22 Seg Neutrophils # Man 19.1 K/mm3 (1.8-7.7) H 09/16/17 15:22 Band Neutrophils # 3.3 K/mm3 09/16/17 15:22 Lymphocytes # (Manual) 1.8 K/mm3 (1.2-5.4) 09/16/17 15:22 Abs React Lymphs (Man) 0.0 K/mm3 09/16/17 15:22 Monocytes # (Manual) 1.4 K/mm3 (0.0-0.8) H 09/16/17 15:22 Eosinophils # (Manual) 0.0 K/mm3 (0.0-0.4) 09/16/17 15:22 Basophils # (Manual) 0.0 K/mm3 (0.0-0.1) 09/16/17 15:22 Metamyelocytes # 0.0 K/mm3 09/16/17 15:22 Myelocytes # 0.0 K/mm3 09/16/17 15:22 Promyelocytes # 0.0 K/mm3 09/16/17 15:22 Blast Cells # 0.0 K/mm3 09/16/17 15:22 WBC Morphology Not Reportable 09/16/17 15:22 Hypersegmented Neuts Not Reportable 09/16/17 15:22 Hyposegmented Neuts Not Reportable 09/16/17 15:22 Hypogranular Neuts Not Reportable 09/16/17 15:22 Smudge Cells Not Reportable 09/16/17 15:22 Toxic Granulation Not Reportable 09/16/17 15:22 Toxic Vacuolation Not Reportable 09/16/17 15:22 Dohle Bodies Not Reportable 09/16/17 15:22 Pelger-Huet Anomaly Not Reportable 09/16/17 15:22 Arlen Rods Not Reportable 09/16/17 15:22 Platelet Estimate Appears normal 09/16/17 15:22 Clumped Platelets Not Reportable 09/16/17 15:22 Plt Clumps, EDTA Not Reportable 09/16/17 15:22 Large Platelets Not Reportable 09/16/17 15:22 Giant Platelets Not Reportable 09/16/17 15:22 Platelet Satelliting Not Reportable 09/16/17 15:22 Plt Morphology Comment Not Reportable 09/16/17 15:22 RBC Morphology Not Reportable 09/16/17 15:22 Dimorphic RBCs Not Reportable 09/16/17 15:22 Polychromasia Not Reportable 09/16/17 15:22 Hypochromasia Not Reportable 09/16/17 15:22 Poikilocytosis Not Reportable 09/16/17 15:22 Anisocytosis Not Reportable 09/16/17 15:22 Microcytosis Not Reportable 09/16/17 15:22 Macrocytosis Not Reportable 09/16/17 15:22 Spherocytes Not Reportable 09/16/17 15:22 Pappenheimer Bodies Not Reportable 09/16/17 15:22 Sickle Cells Not Reportable 09/16/17 15:22 Target Cells Not Reportable 09/16/17 15:22 Tear Drop Cells Not Reportable 09/16/17 15:22 Ovalocytes Few 09/16/17 15:22 Helmet Cells Not Reportable 09/16/17 15:22 [place] Bodies Not Reportable 09/16/17 15:22 [place] Rings Not Reportable 09/16/17 15:22 [place] Cells Not Reportable 09/16/17 15:22 Bite Cells Not Reportable 09/16/17 15:22 Crenated Cell Not Reportable 09/16/17 15:22 Elliptocytes Not Reportable 09/16/17 15:22 Acanthocytes (Spur) Not Reportable 09/16/17 15:22 Rouleaux Not Reportable 09/16/17 15:22 Hemoglobin C Crystals Not Reportable 09/16/17 15:22 Schistocytes Not Reportable 09/16/17 15:22 Malaria parasites Not Reportable 09/16/17 15:22 Gaudencio Bodies Not Reportable 09/16/17 15:22 Hem Pathologist Commnt No 09/16/17 15:22 PT 13.3 Sec. (12.2-14.9) 09/16/17 08:28 INR 0.96 (0.87-1.13) 09/16/17 08:28 APTT 28.7 Sec. (24.2-36.6) 09/16/17 08:28 D-Dimer 1074.75 ng/mlDDU (0-234) H 09/16/17 08:28 Sodium 134 mmol/L (137-145) L 09/16/17 08:28 Potassium 3.9 mmol/L (3.6-5.0) 09/16/17 08:28 Chloride 96.9 mmol/L (98-107) L 09/16/17 08:28 Carbon Dioxide 22 mmol/L (22-30) 09/16/17 08:28 Anion Gap 19 mmol/L 09/16/17 08:28 BUN 13 mg/dL (7-17) 09/16/17 08:28 Creatinine 0.8 mg/dL (0.7-1.2) 09/16/17 08:28 Estimated GFR > 60 ml/min 09/16/17 08:28 BUN/Creatinine Ratio 16 % 09/16/17 08:28 Glucose 120 mg/dL (65-100) H 09/16/17 08:28 Lactic Acid 1.20 mmol/L (0.7-2.0) 09/16/17 22:00 Calcium 9.8 mg/dL (8.4-10.2) 09/16/17 08:28 Total Bilirubin 1.40 mg/dL (0.1-1.2) H 09/16/17 08:28 AST 34 units/L (5-40) 09/16/17 08:28 ALT 55 units/L (7-56) 09/16/17 08:28 Alkaline Phosphatase 115 units/L (35-129) 09/16/17 08:28 Total Creatine Kinase 85 units/L (30-135) 09/16/17 08:33 CK-MB (CK-2) 1.4 ng/mL (0.0-4.0) 09/16/17 08:33 CK-MB (CK-2) Rel Index 1.6 (0-4) 09/16/17 08:33 Troponin T < 0.010 ng/mL (0.00-0.029) 09/16/17 08:33 NT-Pro-B Natriuret Pep 75173 pg/mL (0-450) H 09/16/17 19:49 Total Protein 8.3 g/dL (6.3-8.2) H 09/16/17 08:28 Albumin 4.0 g/dL (3.9-5) 09/16/17 08:28 Albumin/Globulin Ratio 0.9 % 09/16/17 08:28 Lipase 7 units/L (13-60) L 09/16/17 08:33 TSH 0.009 mlU/mL (0.270-4.200) L 09/16/17 15:22 Free T4 2.03 ng/dL (0.76-1.46) H 09/16/17 15:22 Urine Color Yellow (Yellow) 09/16/17 09:30 Urine Turbidity Clear (Clear) 09/16/17 09:30 Urine pH 5.0 (5.0-7.0) 09/16/17 09:30 Ur Specific [place] 1.014 (1.003-1.030) 09/16/17 09:30 Urine Protein 30 mg/dl mg/dL (Negative) 09/16/17 09:30 Urine Glucose (UA) Neg mg/dL (Negative) 09/16/17 09:30 Urine Ketones Tr mg/dL (Negative) 09/16/17 09:30 Urine Blood Mod (Negative) 09/16/17 09:30 Urine Nitrite Neg (Negative) 09/16/17 09:30 Urine Bilirubin Neg (Negative) 09/16/17 09:30 Urine Urobilinogen < 2.0 mg/dL (<2.0) 09/16/17 09:30 Ur Leukocyte Esterase Neg (Negative) 09/16/17 09:30 Urine WBC (Auto) 1.0 /HPF (0.0-6.0) 09/16/17 09:30 Urine RBC (Auto) 7.0 /HPF (0.0-6.0) 09/16/17 09:30 U Epithel Cells (Auto) 1.0 /HPF (0-13.0) 09/16/17 09:30 Urine Mucus Few /HPF 09/16/17 09:30 Urine Opiates Screen Presumptive negative 09/16/17 16:02 Urine Methadone Screen Presumptive negative 09/16/17 16:02 Ur Barbiturates Screen Presumptive negative 09/16/17 16:02 Ur Phencyclidine Scrn Presumptive negative 09/16/17 16:02 Ur Amphetamines Screen Presumptive negative 09/16/17 16:02 U Benzodiazepines Scrn Presumptive negative 09/16/17 16:02 Urine Cocaine Screen Presumptive negative 09/16/17 16:02 U Marijuana (THC) Screen Presumptive negative 09/16/17 16:02 Drugs of Abuse Note Disclamer 09/16/17 16:02 Blood Type B POSITIVE 09/16/17 08:28 Antibody Screen Negative 09/16/17 08:28
[2017-09-17] MEDS: TYLENOL PO PRN ×2 (16:27→20:51)
[2017-09-17] MEDS: APRESOLINE IV PRN ×2 (17:47→22:26)
[2017-09-17] MEDS: TAPAZOLE PO SCH ×2 (17:47→22:26)
[2017-09-17] MEDS ORDERED: MORPHINE IV PRN (22:17)
[2017-09-17] MEDS: LOPRESSOR PO SCH (22:26)
[2017-09-18] MEDS ORDERED: MORPHINE IV PRN (03:11)
[2017-09-18] MEDS: ZOSYN/NS 4.5GM/100ML 4.5 GM/100 ML VIAL IV SCH ×3 (05:26→22:07)
[2017-09-18] MEDS: ZOFRAN IV PRN (05:26)
[2017-09-18] MEDS: TAPAZOLE PO SCH ×3 (05:27→22:06)
[2017-09-18] MEDS ORDERED: NACL 0.9% 1000 ML 1,000 ML ONE (07:47)
[2017-09-18] MEDS ORDERED: WATER FOR IRRIG STERILE IR ONE (07:57)
[2017-09-18 08:01] LABS: Basophils % (Auto) 0.1 % (0.0-1.8); Eosinophils % (Auto) 0.3 % (0.0-4.3); Hematocrit 43.3 % (30.3-42.9); Hemoglobin 14.8 gm/dl (10.1-14.3); Lymphocytes # (Auto) 2.3 K/mm3 (1.2-5.4); Lymphocytes % (Auto) 16.6 % (13.4-35.0); Mean Corpuscular HGB Conc 34 % (30-34); Mean Corpuscular Hemoglobin 32 pg (28-32); Mean Corpuscular Volume 92 fl (79-97); Monocytes # (Auto) 1.1 K/mm3 (0.0-0.8); Monocytes % (Auto) 7.9 % (0.0-7.3); Platelet Count 265 K/mm3 (140-440); Red Blood Count 4.69 M/mm3 (3.65-5.03); Red Cell Distribution Width 13.4 % (13.2-15.2)
[2017-09-18 08:14] LABS: BUN/Creatinine Ratio 8; Blood Urea Nitrogen 6 mg/dL (7-17); Calcium 9.4 mg/dL (8.4-10.2); Hemolysis Index 0
[2017-09-18] MEDS ORDERED: DIPRIVAN 10 MG/ML IV ONE (08:30)
--- NOTE | 2017-09-18 08:45 | Progress Note ---
Assessment and Plan Assessment and plan: 47 YO Female with Obesity, HTN, Medication Noncompliance, Hypothyroidism, presents to ED for evaluation. Pt states that she has experienced Abdominal Pain , and chest discomfort for the past 1 day with persistent symptoms over the same time frame. Pt states that her abdominal pain is 10/10, epigastric, constant, improves with rest, worsened with movement, associated with nausea, vomiting, and vomiting up blood. Pt states that she has experienced 6 episodes of vomiting blood in the past 24 hours. Pt seen and evaluated in ED and found to have GI Bleed, Bilateral Pneumonia, Sepsis, and Accelerated hypertension. Pt admitted to medical floor. GI team consulted, Pt hgb stable,without hematemeis in ED. 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 Hospitalist Physical - Physical exam Narrative exam: Not in cardiopulmonary distress. The patient is obese. Vital signs as documented. Head exam is unremarkable. No scleral icterus . Neck is without jugular venous distension, thyromegaly, or carotid bruits. Lungs are clear to auscultation. Cardiac exam reveals regular rate and Rhythm. First and second heart sounds normal. No murmurs, rubs or gallops. Abdominal exam reveals normal bowel sounds, no masses, no organomegaly and no aortic enlargement. Extremities are nonedematous and both femoral and pedal pulses are normal. 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 No focal weakness. - Constitutional Vitals: Temp Pulse Resp BP Pulse Ox 985 F H 95 H 20 194/94 95 09/18/17 07:59 09/18/17 07:59 09/18/17 07:59 09/18/17 07:59 09/18/17 07:59 General appearance: Present: obese Results - Labs CBC & Chem 7: 09/18/17 06:56 09/18/17 06:56 Labs: Laboratory Last Values WBC 13.7 K/mm3 (4.5-11.0) H 09/18/17 06:56 RBC 4.69 M/mm3 (3.65-5.03) 09/18/17 06:56 Hgb 14.8 gm/dl (10.1-14.3) H 09/18/17 06:56 Hct 43.3 % (30.3-42.9) H 09/18/17 06:56 MCV 92 fl (79-97) 09/18/17 06:56 MCH 32 pg (28-32) 09/18/17 06:56 MCHC 34 % (30-34) 09/18/17 06:56 RDW 13.4 % (13.2-15.2) 09/18/17 06:56 Plt Count 265 K/mm3 (140-440) 09/18/17 06:56 Lymph % (Auto) 16.6 % (13.4-35.0) 09/18/17 06:56 Bell % (Auto) 7.9 % (0.0-7.3) H 09/18/17 06:56 Eos % (Auto) 0.3 % (0.0-4.3) 09/18/17 06:56 Baso % (Auto) 0.1 % (0.0-1.8) 09/18/17 06:56 Lymph # 2.3 K/mm3 (1.2-5.4) 09/18/17 06:56 Bell # 1.1 K/mm3 (0.0-0.8) H 09/18/17 06:56 Eos # 0.0 K/mm3 (0.0-0.4) 09/18/17 06:56 Baso # 0.0 K/mm3 (0.0-0.1) 09/18/17 06:56 Add Manual Diff Complete 09/16/17 15:22 Total Counted 200 09/16/17 15:22 Seg Neutrophils % 75.1 % (40.0-70.0) H 09/18/17 06:56 Seg Neuts % (Manual) 74.5 % (40.0-70.0) H 09/16/17 15:22 Band Neutrophils % 13.0 % 09/16/17 15:22 Lymphocytes % (Manual) 7.0 % (13.4-35.0) L 09/16/17 15:22 Reactive Lymphs % (Man) 0 % 09/16/17 15:22 Monocytes % (Manual) 5.5 % (0.0-7.3) 09/16/17 15:22 Eosinophils % (Manual) 0 % (0.0-4.3) 09/16/17 15:22 Basophils % (Manual) 0 % (0.0-1.8) 09/16/17 15:22 Metamyelocytes % 0 % 09/16/17 15:22 Myelocytes % 0 % 09/16/17 15:22 Promyelocytes % 0 % 09/16/17 15:22 Blast Cells % 0 % 09/16/17 15:22 Nucleated RBC % Not Reportable 09/16/17 15:22 Seg Neutrophils # 10.3 K/mm3 (1.8-7.7) H 09/18/17 06:56 Seg Neutrophils # Man 19.1 K/mm3 (1.8-7.7) H 09/16/17 15:22 Band Neutrophils # 3.3 K/mm3 09/16/17 15:22 Lymphocytes # (Manual) 1.8 K/mm3 (1.2-5.4) 09/16/17 15:22 Abs React Lymphs (Man) 0.0 K/mm3 09/16/17 15:22 Monocytes # (Manual) 1.4 K/mm3 (0.0-0.8) H 09/16/17 15:22 Eosinophils # (Manual) 0.0 K/mm3 (0.0-0.4) 09/16/17 15:22 Basophils # (Manual) 0.0 K/mm3 (0.0-0.1) 09/16/17 15:22 Metamyelocytes # 0.0 K/mm3 09/16/17 15:22 Myelocytes # 0.0 K/mm3 09/16/17 15:22 Promyelocytes # 0.0 K/mm3 09/16/17 15:22 Blast Cells # 0.0 K/mm3 09/16/17 15:22 WBC Morphology Not Reportable 09/16/17 15:22 Hypersegmented Neuts Not Reportable 09/16/17 15:22 Hyposegmented Neuts Not Reportable 09/16/17 15:22 Hypogranular Neuts Not Reportable 09/16/17 15:22 Smudge Cells Not Reportable 09/16/17 15:22 Toxic Granulation Not Reportable 09/16/17 15:22 Toxic Vacuolation Not Reportable 09/16/17 15:22 Dohle Bodies Not Reportable 09/16/17 15:22 Pelger-Huet Anomaly Not Reportable 09/16/17 15:22 Arlen Rods Not Reportable 09/16/17 15:22 Platelet Estimate Appears normal 09/16/17 15:22 Clumped Platelets Not Reportable 09/16/17 15:22 Plt Clumps, EDTA Not Reportable 09/16/17 15:22 Large Platelets Not Reportable 09/16/17 15:22 Giant Platelets Not Reportable 09/16/17 15:22 Platelet Satelliting Not Reportable 09/16/17 15:22 Plt Morphology Comment Not Reportable 09/16/17 15:22 RBC Morphology Not Reportable 09/16/17 15:22 Dimorphic RBCs Not Reportable 09/16/17 15:22 Polychromasia Not Reportable 09/16/17 15:22 Hypochromasia Not Reportable 09/16/17 15:22 Poikilocytosis Not Reportable 09/16/17 15:22 Anisocytosis Not Reportable 09/16/17 15:22 Microcytosis Not Reportable 09/16/17 15:22 Macrocytosis Not Reportable 09/16/17 15:22 Spherocytes Not Reportable 09/16/17 15:22 Pappenheimer Bodies Not Reportable 09/16/17 15:22 Sickle Cells Not Reportable 09/16/17 15:22 Target Cells Not Reportable 09/16/17 15:22 Tear Drop Cells Not Reportable 09/16/17 15:22 Ovalocytes Few 09/16/17 15:22 Helmet Cells Not Reportable 09/16/17 15:22 [place] Bodies Not Reportable 09/16/17 15:22 [place] Rings Not Reportable 09/16/17 15:22 [place] Cells Not Reportable 09/16/17 15:22 Bite Cells Not Reportable 09/16/17 15:22 Crenated Cell Not Reportable 09/16/17 15:22 Elliptocytes Not Reportable 09/16/17 15:22 Acanthocytes (Spur) Not Reportable 09/16/17 15:22 Rouleaux Not Reportable 09/16/17 15:22 Hemoglobin C Crystals Not Reportable 09/16/17 15:22 Schistocytes Not Reportable 09/16/17 15:22 Malaria parasites Not Reportable 09/16/17 15:22 Gaudencio Bodies Not Reportable 09/16/17 15:22 Hem Pathologist Commnt No 09/16/17 15:22 PT 13.3 Sec. (12.2-14.9) 09/16/17 08:28 INR 0.96 (0.87-1.13) 09/16/17 08:28 APTT 28.7 Sec. (24.2-36.6) 09/16/17 08:28 D-Dimer 1074.75 ng/mlDDU (0-234) H 09/16/17 08:28 Sodium 139 mmol/L (137-145) 09/18/17 06:56 Potassium 3.3 mmol/L (3.6-5.0) L 09/18/17 06:56 Chloride 99.1 mmol/L (98-107) 09/18/17 06:56 Carbon Dioxide 23 mmol/L (22-30) 09/18/17 06:56 Anion Gap 20 mmol/L 09/18/17 06:56 BUN 6 mg/dL (7-17) L 09/18/17 06:56 Creatinine 0.8 mg/dL (0.7-1.2) 09/18/17 06:56 Estimated GFR > 60 ml/min 09/18/17 06:56 BUN/Creatinine Ratio 8 % 09/18/17 06:56 Glucose 111 mg/dL (65-100) H 09/18/17 06:56 Lactic Acid 1.20 mmol/L (0.7-2.0) 09/16/17 22:00 Calcium 9.4 mg/dL (8.4-10.2) 09/18/17 06:56 Total Bilirubin 1.40 mg/dL (0.1-1.2) H 09/16/17 08:28 AST 34 units/L (5-40) 09/16/17 08:28 ALT 55 units/L (7-56) 09/16/17 08:28 Alkaline Phosphatase 115 units/L (35-129) 09/16/17 08:28 Total Creatine Kinase 85 units/L (30-135) 09/16/17 08:33 CK-MB (CK-2) 1.4 ng/mL (0.0-4.0) 09/16/17 08:33 CK-MB (CK-2) Rel Index 1.6 (0-4) 09/16/17 08:33 Troponin T < 0.010 ng/mL (0.00-0.029) 09/16/17 08:33 NT-Pro-B Natriuret Pep 67676 pg/mL (0-450) H 09/16/17 19:49 Total Protein 8.3 g/dL (6.3-8.2) H 09/16/17 08:28 Albumin 4.0 g/dL (3.9-5) 09/16/17 08:28 Albumin/Globulin Ratio 0.9 % 09/16/17 08:28 Lipase 7 units/L (13-60) L 09/16/17 08:33 TSH 0.009 mlU/mL (0.270-4.200) L 09/16/17 15:22 Free T4 2.03 ng/dL (0.76-1.46) H 09/16/17 15:22 Urine Color Yellow (Yellow) 09/16/17 09:30 Urine Turbidity Clear (Clear) 09/16/17 09:30 Urine pH 5.0 (5.0-7.0) 09/16/17 09:30 Ur Specific [place] 1.014 (1.003-1.030) 09/16/17 09:30 Urine Protein 30 mg/dl mg/dL (Negative) 09/16/17 09:30 Urine Glucose (UA) Neg mg/dL (Negative) 09/16/17 09:30 Urine Ketones Tr mg/dL (Negative) 09/16/17 09:30 Urine Blood Mod (Negative) 09/16/17 09:30 Urine Nitrite Neg (Negative) 09/16/17 09:30 Urine Bilirubin Neg (Negative) 09/16/17 09:30 Urine Urobilinogen < 2.0 mg/dL (<2.0) 09/16/17 09:30 Ur Leukocyte Esterase Neg (Negative) 09/16/17 09:30 Urine WBC (Auto) 1.0 /HPF (0.0-6.0) 09/16/17 09:30 Urine RBC (Auto) 7.0 /HPF (0.0-6.0) 09/16/17 09:30 U Epithel Cells (Auto) 1.0 /HPF (0-13.0) 09/16/17 09:30 Urine Mucus Few /HPF 09/16/17 09:30 Urine Opiates Screen Presumptive negative 09/16/17 16:02 Urine Methadone Screen Presumptive negative 09/16/17 16:02 Ur Barbiturates Screen Presumptive negative 09/16/17 16:02 Ur Phencyclidine Scrn Presumptive negative 09/16/17 16:02 Ur Amphetamines Screen Presumptive negative 09/16/17 16:02 U Benzodiazepines Scrn Presumptive negative 09/16/17 16:02 Urine Cocaine Screen Presumptive negative 09/16/17 16:02 U Marijuana (THC) Screen Presumptive negative 09/16/17 16:02 Drugs of Abuse Note Disclamer 09/16/17 16:02 Blood Type B POSITIVE 09/16/17 08:28 Antibody Screen Negative 09/16/17 08:28
[2017-09-18] MEDS ORDERED: NACL 0.9% 1000 ML 1,000 ML IV SCH (09:00)
--- NOTE | 2017-09-18 09:01 | Anesthesia Consultation ---
Anesthesia Consult and Med Hx Date of service: 09/18/17 - Airway Anesthetic Teeth Evaluation: Poor ROM Head & Neck: Adequate Mental/Hyoid Distance: Adequate Mallampati Class: Class III Intubation Access Assessment: Possibly Difficult - Pulmonary Exam CTA: Yes - Cardiac Exam Cardiac Exam: RRR - Pre-Operative Health Status ASA Pre-Surgery Classification: ASA3 Proposed Anesthetic Plan: MAC - Pre-Anesthesia Comment Pre-Anesthesia Comments: sepsis - Pulmonary Hx Smoking: Yes Hx Pneumonia: Yes - Cardiovascular System Hx Hypertension: Yes - Endocrine Hx Hyperthyroidism: Yes - Hematic Hx Anemia: Yes
--- NOTE | 2017-09-18 09:01 | Anesthesia Day of Surgery ---
Anesthesia Day of Surgery - Day of Surgery Patient Examined: Yes Patient H&P Reviewed: Yes Patient is NPO: Yes Beta Blockers: Yes
--- NOTE | 2017-09-18 09:04 | Operative Report ---
Operative Report Operative Report: Date of procedure: 09/18/2017 Procedure: Esophagogastroduodenoscopy with biopsies for H. pylori Preprocedure diagnosis: Hematemesis Post procedure diagnosis: Mild erosive prepyloric gastritis and normal esophagus and stomach otherwise. Normal duodenum. Endoscopist: Dr. Choudhary Anesthesia: Monitored anesthesia care per anesthesia department Medications: Propofol per anesthesia Estimated blood loss: [0] After careful discussion of the nature and purpose of the procedure as well as details the technique risks benefits and alternatives consent was obtained. The patient was placed in the left lateral decubitus position and medicated per anesthesia. The tip of the BNI Video 570 video scope was passed per orum under direct vision into the esophagus and advanced into the stomach and descending duodenum. The descending duodenum the duodenal bulb and pylorus were symmetrical and normal. The scope was withdrawn into the stomach and the stomach then gently insufflated with air. The antrum revealed a few punctate erosions but was otherwise normal. Biopsies were taken for H. pylori. The stomach was further insufflated and the scope was then retroflexed and partially withdrawn. The cardia, fundus, and body of the stomach were within normal limits and easily distensible.The scope was then withdrawn in the forward position. The esophagogastric junction was at 39 cm. The esophageal body was normal throughout. The procedure was was well tolerated and the patient was observed in recovery. Impressions: Mild prepyloric gastritis. Normal study otherwise. Plan: Short-term acid suppression therapy for 2 weeks. Advance diet. I will sign off and follow up when necessary. Electronically signed: Prince Choudhary MD
[2017-09-18] MEDS ORDERED: KCL 10MEQ/100ML 10 MEQ/100 ML BAG IV SCH (10:00)
[2017-09-18] MEDS: LEVAQUIN 750MG/150ML 750 MG/150 ML BAG IV SCH (10:41)
[2017-09-18] MEDS: PROCARDIA XL PO SCH (10:42)
[2017-09-18] MEDS: DIOVAN PO SCH (10:42)
[2017-09-18] MEDS: PEPCID IV SCH ×2 (10:43→22:06)
[2017-09-18] MEDS: LOPRESSOR PO SCH ×2 (10:43→22:07)
[2017-09-18] MEDS: PROTONIX IV SCH ×2 (10:43→22:05)
[2017-09-18] MEDS: SODIUM CHLORIDE FLUSH SYRINGE 10 ML IV SCH ×2 (10:44→22:08)
[2017-09-18] MEDS ORDERED: K-DUR PO ONE (11:30)
[2017-09-18] MEDS ORDERED: XYLOCAINE 1% MPF 5 mL ONE (14:37)
[2017-09-18] MEDS ORDERED: LOVENOX SUB-Q SCH (22:00)
[2017-09-19] MEDS: TAPAZOLE PO SCH (05:49)
[2017-09-19] MEDS: ZOSYN/NS 4.5GM/100ML 4.5 GM/100 ML VIAL IV SCH (05:49)
[2017-09-19 07:53] LABS: Basophils % (Auto) 0.4 % (0.0-1.8); Eosinophils # (Auto) 0.2 K/mm3 (0.0-0.4); Eosinophils % (Auto) 2.2 % (0.0-4.3); Hemoglobin 14.6 gm/dl (10.1-14.3); Lymphocytes # (Auto) 3.3 K/mm3 (1.2-5.4); Lymphocytes % (Auto) 30.8 % (13.4-35.0); Mean Corpuscular HGB Conc 34 % (30-34); Mean Corpuscular Hemoglobin 32 pg (28-32); Mean Corpuscular Volume 93 fl (79-97); Monocytes # (Auto) 0.8 K/mm3 (0.0-0.8); Monocytes % (Auto) 7.1 % (0.0-7.3); Platelet Count 273 K/mm3 (140-440); Red Blood Count 4.63 M/mm3 (3.65-5.03); Red Cell Distribution Width 13.6 % (13.2-15.2)
[2017-09-19 08:10] LABS: BUN/Creatinine Ratio 10; Blood Urea Nitrogen 7 mg/dL (7-17); Calcium 9.2 mg/dL (8.4-10.2); Hemolysis Index 3
[2017-09-19 09:04] VITALS: BP 152/99
--- NOTE | 2017-09-19 09:29 | Discharge Summary ---
Providers - Providers Date of Admission: 09/16/17 16:06 Attending physician: EGRALD BARKER MD 09/16/17 18:32 Consult to Physician [CONS] Routine Comment: Consulting Provider: PARADISE JOHNSON Physician Instructions: Reason For Exam: hematemesis Primary care physician: SLAB STRIPPER Hospitalization Reason for admission: Bilateral pneumonia, mallorry skaggs syndrome Condition: Critical Pertinent studies: CTA bilateral infiltrates Hospital course: 47 YO Female with Obesity, HTN, Medication Noncompliance, Hyperthyroidism, presents to ED for evaluation. Pt states that she has experienced Abdominal Pain , and chest discomfort for the past 1 day with persistent symptoms over the same time frame. Pt states that her abdominal pain is 10/10, epigastric, constant, improves with rest, worsened with movement, associated with nausea, vomiting, and vomiting up blood. Pt states that she has experienced 6 episodes of vomiting blood in the past 24 hours. Pt seen and evaluated in ED and found to have GI Bleed, Bilateral Pneumonia, Sepsis, and Accelerated hypertension. Pt admitted to medical floor. GI team consulted, Pt hgb stable,without hematemeis in ED. Sepsis due to pneumonia - Patient was with IV antibiotics, IV fluids, culture negative and continued with PO antibiotics. 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 patient was discharged with PO antibiotics. Appropriate medication scripts were given at the time of discharge. Disposition: - TO HOME OR SELFCARE Time spent for discharge: 31 minutes - Discharge Diagnoses (1) Abdominal pain Status: Acute Qualifiers: Abdominal location: upper abdomen, unspecified Qualified Code(s): R10.10 - Upper abdominal pain, unspecified (2) Accelerated hypertension Status: Acute (3) Hematemesis Status: Acute Qualifiers: Nausea presence: with nausea Qualified Code(s): K92.0 - Hematemesis (4) Pneumonia Status: Acute Qualifiers: Pneumonia type: due to unspecified organism Laterality: bilateral Lung location: unspecified part of lung Qualified Code(s): J18.9 - Pneumonia, unspecified organism (5) Sepsis Status: Acute Qualifiers: Sepsis type: sepsis due to unspecified organism Qualified Code(s): A41.9 - Sepsis, unspecified organism (6) Obesity (BMI 30-39.9) Status: Acute Core Measure Documentation - Palliative Care Palliative Care/ Comfort Measures: Not Applicable - Core Measures Any of the following diagnoses?: none Exam - Physical Exam Narrative exam: Not in cardiopulmonary distress. The patient is obese. Vital signs as documented. Head exam is unremarkable. No scleral icterus . Neck is without jugular venous distension, thyromegaly, or carotid bruits. Lungs are clear to auscultation. Cardiac exam reveals regular rate and Rhythm. First and second heart sounds normal. No murmurs, rubs or gallops. Abdominal exam reveals normal bowel sounds, no masses, no organomegaly and no aortic enlargement. Extremities are nonedematous and both femoral and pedal pulses are normal. 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 No focal weakness. - Constitutional Vitals: Temp Pulse Resp BP Pulse Ox 98.8 F 81 22 152/99 97 09/19/17 08:17 09/19/17 08:17 09/19/17 08:17 09/19/17 08:16 09/19/17 08:17 Plan Activity: no restrictions Weight Bearing Status: Full Weight Bearing Diet: low salt Additional Instructions: Please follow up at [facility] in 1-2 weeks if no estblished PCP Follow up with: PRIMARY CAREMD [Primary Care Provider] - 7 Days Prescriptions: amLODIPine [Norvasc] 10 mg PO DAILY #30 tab HYDROcodone/APAP 5-325 [[place] 5/325] 1 each PO Q6HR PRN #12 tablet PRN Reason: Pain Levofloxacin [Levaquin] 750 mg PO QDAY #7 tablet Methimazole [Tapazole] 5 mg PO Q8H #30 tab Metoprolol/Hydrochlorothiazide [Metoprolol HCTZ 50-25 mg TAB] 1 tab PO QDAY #30 tab Pantoprazole [Protonix TAB] 40 mg PO QDAY #14 tablet
[2017-09-19] MEDS ORDERED: K-DUR PO ONE (10:00)
[2017-09-19] MEDS: DIOVAN PO SCH (10:19)
[2017-09-19] MEDS: LEVAQUIN 750MG/150ML 750 MG/150 ML BAG IV SCH (10:19)
[2017-09-19] MEDS: SODIUM CHLORIDE FLUSH SYRINGE 10 ML IV SCH (10:57)
[2017-09-19] MEDS: PROCARDIA XL PO SCH (12:14)
[2017-09-19] MEDS: PEPCID IV SCH (12:15)
[2017-09-19] MEDS: PROTONIX IV SCH (12:15)
[2017-09-19] MEDS: LOPRESSOR PO SCH (12:15)
== END 2017-09-19 12:30 | disposition home or self-care (01) | DRG 871 ==
LOC: ED 07:57 → 3A 16:06
PROVIDERS: ADMIT Internal Medicine; ATTEND Internal Medicine
PROC: 3E0234Z Introduction of Serum, Toxoid and Vaccine into Muscle, Percutaneous Approach (ICD-10-PCS; principal; 2017-09-17)
PROC: 0DB78ZX Excision of Stomach, Pylorus, Via Natural or Artificial Opening Endoscopic, Diagnostic (ICD-10-PCS; 2017-09-18)
DX: A41.9 Sepsis, unspecified organism (principal); J18.9 Pneumonia, unspecified organism; I16.1 Hypertensive emergency; K92.0 Hematemesis; Z23 Encounter for immunization; Z90.710 Acquired absence of both cervix and uterus; I10 Essential (primary) hypertension; Z82.49 Family history of ischemic heart disease and other diseases of the circulatory system; F17.200 Nicotine dependence, unspecified, uncomplicated; Z91.19 Patient's noncompliance with other medical treatment and regimen; E66.9 Obesity, unspecified; Z68.37 Body mass index [BMI] 37.0-37.9, adult; E05.90 Thyrotoxicosis, unspecified without thyrotoxic crisis or storm; E87.6 Hypokalemia
CPT/HCPCS: 36415; 71275; 74178; 80048; 80053; 80307; 81001; 82140; 82550; 82553; 83690; 83880; 84439; 84443; 84484; 85007; 85025; 85379; 85610; 85730; 86850; 86900; 86901; 87040; 88305; 88342; 90732; 93005; 93010; 96361; 96365; 96375; 96376; 99406; C9113; J0360; J1650; J1956; J2270; J2405; J2543; J2704; J3370; J3480; J7030; J7040; Q9967